=== PATIENT | male | born 1945 | race Caucasian/White ===

== ENCOUNTER 2020-08-11 08:59 | Outpatient (CLI) | payer MEDICARE, BC ==
[2020-08-11 10:38] LABS: Hemoglobin 14.3 g/dL (13.5-17.5); Mean Corpuscular Hemoglobin 29.8 pg (27.0-33.0); Mean Corpuscular Volume 90.2 fl (81.2-95.1); Mean Platelet Volume 10.5 fl (7.4-10.4); Platelet Count 233 10x3/uL (150-450); RBC Distribution Width 12.5 % (11.5-14.5); White Blood Cell (WBC) Count 3.8 10x3/uL (3.5-10.5)
[2020-08-11 10:48] LABS: Bilirubin Neg (Negative); Blood, Urine Negative (Negative); Clarity Clear (Clear); Glucose, Urine (Dipstick) Normal (Negative); Ketone, Urine Negative (Negative); Leukocyte 25 (Negative); Nitrite Negative (Negative); Protein, Urine (Dipstick) Negative (Neg-Trace); Urobilinogen Normal mg/dL (Less than 2)
[2020-08-11 10:52] LABS: PTT 26.8 sec (22.0-33.0); Prothrombin Time 10.7 sec (9.5-12.1)
[2020-08-11 11:15] LABS: Anion Gap 11 mmol/L (10-20); BUN (Urea Nitrogen) 19 mg/dL (8.4-25.7); Calc. Creatinine Clearance 0 mL/min (70-130); Calcium 9.9 mg/dL (7.8-10.44); Carbon Dioxide 28 mmol/L (23-31); Chloride 105 mmol/L (98-107); Glucose 102 mg/dL (83-110); Potassium 4.5 mmol/L (3.5-5.1); Sodium 139 mmol/L (136-145)
[2020-08-11 12:38] LABS: Bacteria/HPF None Seen HPF (None Seen); RBC/HPF None Seen HPF (0-3); Squamous Epithelial 0-3 HPF (0-3); WBC/HPF 0-3 HPF (0-3)
== END 2020-08-11 09:00 | disposition home or self-care (01) ==
LOC: LABBT 08:59
PROVIDERS: ATTEND Urology
DX: Z01.812 Encounter for preprocedural laboratory examination (principal); N21.0 Calculus in bladder
CPT/HCPCS: 80048; 81001; 85027; 85610; 85730; 87086

== ENCOUNTER 2020-08-16 07:30 | Day surgery (SDC) | payer MEDICARE ==
[2020-08-13 11:54] VITALS: BMI 27.0
[2020-08-16] MEDS ORDERED: Levofloxacin 500 mg/D5W 100 ml Premix Bag ONE (07:40)
[2020-08-16] MEDS ORDERED: Fentanyl 100 MCG/2 ML VIAL ONE (09:15)
[2020-08-16] MEDS ORDERED: Famotidine/PF 20 mg/2ml Vial ONE (09:15)
[2020-08-16] MEDS ORDERED: Lidocaine 1% PF 5 ML VIAL ONE (09:31)
[2020-08-16] MEDS ORDERED: Metoclopramide HCl 10 MG/2 ML VIAL ONE (09:31)
[2020-08-16] MEDS ORDERED: Ondansetron PF 4 MG/2 ML Vial ONE (09:31)
[2020-08-16] MEDS ORDERED: PROPOFOL 200 MG/20 ML VIAL ONE (09:31)
[2020-08-16] MEDS ORDERED: ePHEDrine Sulfate 50 MG/10 ML VIAL ONE (09:31)
== END 2020-08-16 12:54 | disposition home or self-care (01) ==
LOC: SDC 07:30
PROVIDERS: ATTEND Urology
PROC: 0TCB8ZZ Extirpation of Matter from Bladder, Via Natural or Artificial Opening Endoscopic (ICD-10-PCS; principal; 2020-08-16)
DX: N21.0 Calculus in bladder (principal); N21.1 Calculus in urethra; I10 Essential (primary) hypertension; Z79.2 Long term (current) use of antibiotics
CPT/HCPCS: 82365; 88300; J1956; J2405; J2704; J2765; J3010; S0028

== ENCOUNTER 2023-09-20 08:00 | Day surgery (SDC) | payer MEDICARE ==
[2023-09-17 14:18] VITALS: BMI 26.4
[2023-09-20] MEDS ORDERED: Oxymetazoline HCl 0.05% (30 ML BOT) ONE (09:09)
[2023-09-20] MEDS ORDERED: EPINEPHrine 1 MG/ML VIAL ONE (09:42)
[2023-09-20] MEDS ORDERED: Lidocaine 1% (PF) 30 ML VIAL ONE (09:43)
[2023-09-20] MEDS ORDERED: Bacitracin Zinc Ointment 30 gm TUBE ONE (09:43)
[2023-09-20] MEDS ORDERED: fentaNYL PF 100 MCG/2 ML SYRINGE ONE (09:45)
[2023-09-20] MEDS ORDERED: PROPOFOL 20 ML ONE (09:45)
[2023-09-20] MEDS ORDERED: Rocuronium Bromide 10 MG/ML (10ML VIAL) ONE (09:47)
[2023-09-20] MEDS ORDERED: MINERAL OIL/WHITE PETROLATUM 3.5 GM TUBE ONE (09:53)
[2023-09-20] MEDS ORDERED: Dexamethasone 4 mg/ml Vial ONE (09:54)
[2023-09-20] MEDS ORDERED: Dexamethasone 20 MG/5 ML VIAL ONE (09:54)
[2023-09-20] MEDS ORDERED: Ondansetron PF 4 MG/2 ML Vial ONE (10:13)
[2023-09-20] MEDS ORDERED: SUGAMMADEX SODIUM 200 MG/2 ML VIAL ONE (10:14)
[2023-09-20] MEDS ORDERED: Hydrocodone-Acetamin 15 ML UDCUP ONE (12:26)
== END 2023-09-20 13:35 | disposition home or self-care (01) ==
LOC: SDC 08:00
PROVIDERS: ATTEND Specialist
PROC: 09BM4ZZ Excision of Nasal Septum, Percutaneous Endoscopic Approach (ICD-10-PCS; principal; 2023-09-20)
PROC: 09TL7ZZ Resection of Nasal Turbinate, Via Natural or Artificial Opening (ICD-10-PCS; 2023-09-20)
PROC: 09QM3ZZ Repair Nasal Septum, Percutaneous Approach (ICD-10-PCS; 2023-09-20)
DX: J34.3 Hypertrophy of nasal turbinates (principal); J34.2 Deviated nasal septum; J34.89 Other specified disorders of nose and nasal sinuses; E78.00 Pure hypercholesterolemia, unspecified; I10 Essential (primary) hypertension; Z79.899 Other long term (current) drug therapy; Z98.890 Other specified postprocedural states; Z96.659 Presence of unspecified artificial knee joint
CPT/HCPCS: 30140; 30468; 30520; C1889; J0171; J1100 ×2; J2001; J2405; J2704